=== PATIENT | male | born 2000 | race Two or more races ===

== ENCOUNTER 2023-12-09 03:12 | Emergency (ER) | payer OTHER ==
[~2023-12-09] VITALS: Ht 180.3 cm; Wt 80.3 kg
[2023-12-09 03:36] VITALS: PULSE 82; RESP 14; O2SAT 96
[2023-12-09] MEDS: MORPHINE SULFATE 4 MG/ML SYR/VIAL IV ONE ×2 (04:42→07:30)
[2023-12-09] MEDS: ONDANSETRON HCL 4 MG/2 ML VIAL IV ONE ×2 (04:42→07:30)
[2023-12-09] MEDS: ETOMIDATE (2MG/ML) 20ML VIAL IV ONE (06:35)
[2023-12-09] MEDS ORDERED: HYDR-4902 PO (06:55)
[2023-12-09 10:00] VITALS: PULSE 72; RESP 16; O2SAT 95
[2023-12-09 10:26] VITALS: BP 116/58; PULSE 95; RESP 16; O2SAT 91
== END 2023-12-09 10:41 | disposition home or self-care (01) ==
LOC: ER 03:12
DX: S52.612A Displaced fracture of left ulna styloid process, initial encounter for closed fracture (principal); R51.9 Headache, unspecified; S52.502A Unspecified fracture of the lower end of left radius, initial encounter for closed fracture; S00.81XA Abrasion of other part of head, initial encounter; Z79.891 Long term (current) use of opiate analgesic; W18.30XA Fall on same level, unspecified, initial encounter; Y93.89 Activity, other specified; Y92.89 Other specified places as the place of occurrence of the external cause; Y99.8 Other external cause status
CPT/HCPCS: 25605; 70450; 73100; 73110; 96374; 96375; 99152; 99285; J2270; J2405